=== PATIENT | female | born 1995 | race African-American/Black ===

== ENCOUNTER 2017-05-23 11:36 | Emergency (ER) | payer MEDICAID ==
[~2017-05-23] VITALS: Ht 162.6 cm; Wt 103.0 kg
[~2017-05-23 11:36] MED LIST: IBUPROFEN600 MG ORAL
[2017-05-23] MEDS ORDERED: LACTULOSE20 GM/301 ORAL (13:03)
[2017-05-23 13:13] VITALS: BP 113/74
--- NOTE | 2017-05-23 14:54 | Emergency Room Report ---
History of Present Illness General Chief Complaint: Abdominal Pain Source: Patient Present Illness HPI 21 YOF Walk-in with 1 week of generalized abd pain, constipation and nausea. Denies vomiting, diarrhea, fever/chills, urinary complaints States only "small BM" yesterday Drinks plenty of water Recent dietary indiscretion with eating a lot of chocolate No previous Abd/pelvic surgery Allergies: Coded Allergies: No Known Allergies (Unverified , 05/23/17) Patient History Past Medical History: none Past Surgical History: none Pertinent Family History: none Social History: Denies: alcohol use, drug use, smoking Now: No Immunizations: UTD Reviewed Nursing Documentation: PMH: Agreed, PSxH: Agreed Nursing Documentation-PMH Past Medical History: No Stated History Review of Systems All Other Systems: negative except mentioned in HPI Physical Exam Vital Signs Date Time Temp Pulse Resp B/P Pulse Ox O2 Delivery O2 Flow Rate FiO2 05/23/17 11:44 98.2 74 20 113/74 100 Room Air Sp02 EP Interpretation: reviewed, normal General Appearance: normal inspection, well appearing, no apparent distress, alert, obese Head: atraumatic ENT: normal ENT inspection, hearing grossly normal, normal voice Neck: normal inspection, full range of motion, supple, no bony tend Respiratory: normal inspection, lungs clear, normal breath sounds, no respiratory distress, no retraction, no wheezing Cardiovascular #1: regular rate, rhythm, no edema Gastrointestinal: normal inspection, normal bowel sounds, non tender, soft, no guarding, no hernia Genitourinary: no CVA tenderness Musculoskeletal: normal inspection, back normal, normal range of motion, Blair' s Sign negative Neurologic: normal inspection, alert, oriented x3, responsive, household refrigerator mechanic III-XII nml as tested, motor strength/tone normal, speech normal Psychiatric: normal inspection, judgement/insight normal, mood/affect normal Skin: normal inspection, normal color, no rash Lymphatic: normal inspection Medical Decision Making Diagnostic Impression: Primary Impression: Constipation Qualified Codes: K59.00 - Constipation, unspecified Additional Impression: Abdominal pain Qualified Codes: R10.84 - Generalized abdominal pain ER Course Generalized abd pain with constipation - VSS. Afebrile. - Non-focal abdomen on exam - ?Constipation. - Will try Rx trial of lactulose - Understands to return for continued symptoms if lactulose doesnt work - Given normal vitals and non-focal exam, low suspicion for acute bacterial or surgical process requiring lab work, imaging at this time DC home Last Vital Signs Date Time Temp Pulse Resp B/P Pulse Ox O2 Delivery O2 Flow Rate FiO2 05/23/17 13:13 113/74 05/23/17 11:44 98.2 74 20 100 Room Air Status: improved Disposition: HOME, SELF-CARE Condition: Improved Scripts Lactulose (LACTULOSE*) 20 Gm/30 Ml Solution 30 ML ORAL DAILY for constipation for 3 Days, #90 ML 0 Refills Prov: QUINTON FALCON M.D. 05/23/17 Patient Instructions: Constipation, Adult, [id number] QUINTON FALCON M.D. May 23, 2017 14:54
== END 2017-05-23 13:13 | disposition home or self-care (01) ==
LOC: EMR 12:20
DX: K59.00 Constipation, unspecified (principal); R10.84 Generalized abdominal pain; R11.0 Nausea
CPT/HCPCS: 99283

== ENCOUNTER 2019-06-23 17:56 | Emergency (ER) | payer MEDICAID ==
[~2019-06-23] VITALS: Ht 162.6 cm; Wt 106.6 kg
[~2019-06-23 17:56] MED LIST changes: +LACTULOSE20 GM/301 ORAL
[2019-06-23 18:00] VITALS: BP 114/83
--- NOTE | 2019-06-23 18:00 | NUR ---
ED Nurse Note: pt ambulated to ER from home due to pelvic pain /10 and spotting. pt aao x4 and ambulatory. skin clean and intact. calm and cooperative. no acute distress noted at this time.
[2019-06-23] MEDS ORDERED: NKM (18:04)
[2019-06-23] MEDS ORDERED: Isovue-300 100ml vial INJ PRN (18:30)
[2019-06-23 18:36] LABS: BASOPHILS % (AUTO) 1.9 % (0.0-2.0); EOSINOPHILS % (AUTO) 2.1 % (0.0-3.0); HEMATOCRIT 37.1 % (37.0-47.0); HEMOGLOBIN 12.3 G/DL (12.0-16.0); LYMPHOCYTES % (AUTO) 30.5 % (20.0-45.0); MEAN CORPUSCULAR VOLUME 78 FL (80-99); MONOCYTES % (AUTO) 5.6 % (1.0-10.0); NEUTROPHILS % (AUTO) 59.9 % (45.0-75.0); PLATELET COUNT 314 K/UL (150-450); RED BLOOD COUNT 4.75 M/UL (4.20-5.40); RED CELL DISTRIBUTION WIDTH 12.3 % (11.6-14.8); WHITE BLOOD COUNT 6.5 K/UL (4.8-10.8)
[2019-06-23 18:37] LABS: APPEARANCE,URINE CLEAR; BILIRUBIN, URINE NEGATIVE (NEGATIVE); COLOR,URINE PALE YELLOW; GLUCOSE, URINE (UA) NEGATIVE (NEGATIVE); KETONES,URINE NEGATIVE (NEGATIVE); LEUKOCYTE ESTERASE ,URINE NEGATIVE (NEGATIVE); NITRITE,URINE NEGATIVE (NEGATIVE); PH,URINE 7 (4.5-8.0); PROTEIN,URINE NEGATIVE (NEGATIVE); UROBILINOGEN,URINE NORMAL MG/DL (0.0-1.0)
[2019-06-23 18:46] LABS: ANION GAP 6 mmol/L (5-15); BLOOD UREA NITROGEN 7 mg/dL (7-18); CALCIUM 9.1 MG/DL (8.5-10.1); CARBON DIOXIDE 28 MMOL/L (21-32); CHLORIDE 108 MMOL/L (98-107); CREATININE 0.9 MG/DL (0.55-1.30); POTASSIUM 4.1 MMOL/L (3.5-5.1); SODIUM 142 MMOL/L (136-145)
[2019-06-23 18:51] LABS: ALANINE AMINOTRANSFERASE 22 U/L (12-78); ALBUMIN 3.7 G/DL (3.4-5.0); ALBUMIN/GLOBULIN RATIO 1.1 (1.0-2.7); ALKALINE PHOSPHATASE 49 U/L (46-116); ASPARTATE AMINO TRANSFERASE 20 U/L (15-37); BILIRUBIN,TOTAL 0.2 MG/DL (0.2-1.0)
--- NOTE | 2019-06-23 19:00 | NUR ---
ED Nurse Note: pt refused CT scan with constrast. ERPA at bedside.
--- NOTE | 2019-06-23 19:04 | Emergency Room Report ---
History of Present Illness General Chief Complaint: Pelvic Pain Source: Patient Present Illness HPI 23-year-old female with no symptom past medical history here complaining of 3 weeks of pelvic pain and 1 week of vaginal spotting. Patient reports that she gets her periods regularly and her last menstrual period was a month ago. Patient reports that she is sexually active without using any protection. Patient denies dysuria urinary frequency. Patient reports that one year ago she was positive for HPV however was told by her epic cadence analyst to repeat HPV testing reports that in the past week she has been having noticing blood in the vaginal area upon wiping however denies actual spotting or bleeding or clotting. Patient reports her pelvic pain reports from sexual intercourse. Denies nausea vomiting, abdominal pain, dizziness, chest pain, shortness of breath, palpitation or other associated symptoms. Patient refuses to do CT scan as unsure whether she is allergic to contrast after I offered a different kind of contrast she told that she will follow-up with her epic cadence analyst if any imaging needed. Has not taken medication for pain. Rating the pain 5 out of 10 with radiation to her back. Denies tingling and numbness. Allergies: Coded Allergies: No Known Allergies (Unverified , 05/23/17) Patient History Past Medical History: see triage record Past Surgical History: unable to obtain Pertinent Family History: none Last Menstrual Period: 05/27/2019 Now: No Immunizations: UTD Reviewed Nursing Documentation: PMH: Agreed; PSxH: Agreed Nursing Documentation-PMH Past Medical History: No Stated History Review of Systems All Other Systems: negative except mentioned in HPI Physical Exam Vital Signs Date Time Temp Pulse Resp B/P (MAP) Pulse Ox O2 Delivery O2 Flow Rate FiO2 06/23/19 18:00 98.4 73 18 114/83 (93) 100 Room Air Sp02 EP Interpretation: reviewed, normal General Appearance: no apparent distress, alert, GCS 15, non-toxic Head: normocephalic, atraumatic Eyes: bilateral eye normal inspection, bilateral eye PERRL ENT: hearing grossly normal, normal pharynx, no angioedema, normal voice Neck: full range of motion, supple/symm/no masses Respiratory: chest non-tender, lungs clear, normal breath sounds, speaking full sentences Cardiovascular #1: regular rate, rhythm, no edema, no murmur Cardiovascular #2: 2+ carotid (R), 2+ carotid (L), 2+ radial (R), 2+ radial (L) , 2+ dorsalis pedis (R), 2+ dorsalis pedis (L) Gastrointestinal: normal bowel sounds, non tender, soft, non-distended, no guarding, no rebound Genitourinary: no CVA tenderness Musculoskeletal: back normal, gait/station normal, normal range of motion, non- tender Neurologic: normal inspection, alert, oriented x3 Psychiatric: judgement/insight normal, memory normal, mood/affect normal, no suicidal/homicidal ideation Skin: no rash Lymphatic: normal inspection, no adenopathy Medical Decision Making PA Attestation All diagnoses and treatment plans were reviewed and discussed with my supervising physician Dr. Ramon Diagnostic Impression: Primary Impression: Pelvic pain ER Course 23-year-old female with no symptom past medical history here complaining of 3 weeks of pelvic pain and 1 week of vaginal spotting. Patient reports that she gets her periods regularly and her last menstrual period was a month ago. Patient reports that she is sexually active without using any protection. Patient denies dysuria urinary frequency. Patient reports that one year ago she was positive for HPV however was told by her epic cadence analyst to repeat HPV testing reports that in the past week she has been having noticing blood in the vaginal area upon wiping however denies actual spotting or bleeding or clotting. Patient reports her pelvic pain reports from sexual intercourse. Denies nausea vomiting, abdominal pain, dizziness, chest pain, shortness of breath, palpitation or other associated symptoms. Patient refuses to do CT scan as unsure whether she is allergic to contrast after I offered a different kind of contrast she told that she will follow-up with her epic cadence analyst if any imaging needed. Has not taken medication for pain. Rating the pain 5 out of 10 with radiation to her back. Denies tingling and numbness. Ddx considered but are not limited to: UTI, intrauterine , ovarian cyst , fibroids, ovarian cancer Vital signs: are WNL, pt. is afebrile H&PE are most consistent with: Pelvic pain unspecified ORDERS: UA, urine test, CBC, CMP, ibuprofen ED INTERVENTIONS: Ibuprofen DISCHARGE: At this time pt. is stable for d/c to home. Will provide printed patient care instructions, and any necessary prescriptions. Care plan and follow up instructions have been discussed with the patient prior to discharge. Patient to follow-up with her primary care provider and epic cadence analyst for further imaging is reviewed his imaging here unspecified pelvic pain possible HPV to be tested and treated with epic cadence analyst Last Vital Signs Date Time Temp Pulse Resp B/P (MAP) Pulse Ox O2 Delivery O2 Flow Rate FiO2 06/23/19 18:00 98.4 73 18 114/83 (93) 100 Room Air Disposition: HOME, SELF-CARE Condition: Stable Scripts Ibuprofen* (MOTRIN*) 600 Mg Tablet 600 MG ORAL Q8H PRN for For Pain, #30 TAB 0 Refills Prov: Efe Lao 06/23/19 Referrals: [facility]ERR[facility] (PCP) Patient Instructions: Pelvic Pain, Female Additional Instructions: Follow-up with a primary care provider and be referred to epic cadence analyst due to your positive HPV history need to have another Pap smear done since he refused to do CT scan at this time we do not know if there is any abnormalities in the pelvic region that is causing your symptoms however your blood work was within normal limits. Efe Lao Jun 23, 2019 19:04
--- NOTE | 2019-06-23 19:04 | NUR ---
HAND-OFF: Report given to BEN Luong. no orders to carry at this moment. labs have been sent.
[2019-06-23] MEDS ORDERED: IBUPROFEN600 MG ORAL (19:08)
[2019-06-23 19:13] VITALS: BP 124/78
[2019-06-23 19:15] VITALS: BP 124/78
--- NOTE | 2019-06-23 19:15 | NUR ---
ER DISCHARGE NOTE: Patient is cleared to be discharged per ERMD, pt is aox4, on room air, with stable vital signs. pt was given dc and prescription instructions, pt was able to verbalize understanding, pt id band removed without complications. pt is able to ambulate with steady gait. pt took all belongings.
== END 2019-06-23 19:17 | disposition home or self-care (01) ==
LOC: EMR 18:15
DX: R10.2 Pelvic and perineal pain (principal)
CPT/HCPCS: 36415; 80053; 81001; 81025; 85025; 99283